=== PATIENT | male | born 1990 | race Two or more races ===

== ENCOUNTER 2025-02-09 02:43 | Emergency (ER) | payer MEDICAID, SELFPAY ==
[2025-02-09 02:46] VITALS: BMI 32.5
[2025-02-09 02:53] VITALS: BP 146/90; PULSE 94; RESP 20; O2SAT 100
--- NOTE | 2025-02-09 03:13 | EDNOTE_ITS ---
ED Recheck Abnl Lab Rx-RME/HPI General Chief Complaint: General Adult/Misc Complain Stated Complaint: NOT FEELING GOOD Time Seen by Provider: 02/09/25 03:08 Arrival date/time: 02/09/25 02:43 34M with no significant PMH presents to ED with muscle cramps and possible anxiety/panic attack. Patient recently started taking creatine and has not been drinking enough water. Limitations: no limitations Related Data Allergies Allergy/AdvReac Type Severity Reaction Status Date / Time No Known Allergies Allergy Verified 02/09/25 02:44 Review of Systems Review of Systems Systems Reviewed: All systems reviewed, normal except as documented Constitutional Constitutional: Reports system reviewed and no additional complaints, except as documented, Denies fever(s) and Denies headache(s) ENT Ears, Nose, Mouth, and Throat: Denies disequilibrium and Denies headache(s) Cardiovascular Cardiovascular: Reports system reviewed and no additional complaints, except as documented, Denies chest pain and Denies dyspnea Respiratory Respiratory: Reports system reviewed and no additional complaints, except as documented, Denies cough and Denies dyspnea Gastrointestinal Gastrointestinal: Reports system reviewed and no additional complaints, except as documented, Denies abdominal pain, Denies nausea and Denies vomiting Musculoskeletal Musculoskeletal: Reports as per HPI and Reports muscle cramps Neurologic Neurologic: Reports system reviewed and no additional complaints, except as documented, Denies confusion, Denies disequilibrium and Denies headache(s) Psychiatric Psychiatric: Reports as per HPI, Denies confusion and Reports panic attacks Past Medical History Social History SMOKING STATUS: Former smoker ED Exam General Limitations: Present no limitations General appearance: Present alert, in no apparent distress and anxious Head Head exam: Present atraumatic Eye Eye exam: Present normal appearance, PERRL and EOMI ENT ENT exam: Present normal exam, normal oropharynx and mucous membranes moist Neck Neck exam: Present normal inspection, full ROM and trachea midline Chest Chest inspection: Present normal inspection and symmetric chest wall rise Respiratory Respiratory exam: Present normal lung sounds bilaterally Cardiovascular Cardiovascular exam: Present regular rate, normal rhythm and normal heart sounds Abdominal Exam Abdominal exam: Present soft and normal bowel sounds Extremities Exam Extremities exam: Present normal inspection and full ROM Back Exam Back exam: Present normal inspection and full ROM Neurological Exam Neurological exam: Present alert, oriented X3 and CN II-XII intact Psychiatric Psychiatric exam: Present normal affect and normal mood Skin Skin exam: Present warm, dry, intact and normal color Course Quality Measures none Orders Category Date Time Status Alcohol, Blood Medical Stat Lab 02/09/25 03:18 Completed CBC Stat Lab 02/09/25 03:18 Completed CMP [Comprehensive Metabolic Panel] Stat Lab 02/09/25 03:18 Completed Drug Screen,Urine Stat Lab 02/09/25 03:27 Completed Urinalysis, C/S if Indicated Stat Lab 02/09/25 03:27 Completed Diazepam [Valium] Med 02/09/25 03:09 Discontinued 5 mg PO X1 ONE Vital Signs Vital signs: Vital Signs Pulse Rate 94 02/09/25 02:53 Respiratory Rate 20 02/09/25 02:53 Blood Pressure 146/90 H 02/09/25 02:53 Pulse Oximetry (%) 100 02/09/25 02:53 Oxygen Delivery Method Room Air 02/09/25 02:53 O2 at 100% on RA and WNLs Recheck / Abnormal Lab / Rx MDM Narrative MDM Narrative:: 34M with no significant PMH presents to ED with muscle cramps and possible anxiety/panic attack. Patient recently started taking creatine and has not been drinking enough water. Physical exam reveals anxious individual. Normal WOB. Speech normal. Patient is afebrile and alert. No leukocytosis. CMP unremarkable except for mildly elevated Cr of 1.5. Unclear of chronic vs acute. UA clean no proteins. [employer] given. Valium improved anxiety. Patient data External records reviewed:: None Clinical information provided by:: patient Social determinants that could affect healthcare access:: none Patient has the following chronic illnesses:: none How is presenting disease/condition affected by chronic disease/condition?: no chronic disease Evaluation data The following diagnostics were reviewed and interpreted by me:: lab results Lab and/or radiology exams considered but not ordered:: ordered Interpretation Summary: above Medications / Prescriptions Medications or Prescriptions considered but not ordered:: ordered Medication administrations:: Medication Administration History Discontinued Medications Diazepam (Diazepam 5 Mg Tablet) 5 mg PO X1 ONE Stop: 02/09/25 03:10 Last Admin: 02/09/25 03:15 Dose: 5 mg Documented By: CVL above Consultations Consultation(s) initiated? (list below): No Diagnosis Recheck Differential Diagnosis: encounter for medication refill, encounter for wound recheck, encounter for recheck of burn, encounter for removal of sutures, warfarin-induced coagulopathy and other (muscle cramps, panic attack, elevated creatinine) Most likely diagnosis given after review of the tests above:: panic attack and elevated creatinine Admission Indicated Admission indicated?: not indicated Admission Request Was there a request for admission?: No Disposition Plan Disposition Plan: Discharge Discharge Attestation Discharge Attestation: The patient and all family members were given an opportunity to ask questions and understood the discharge instructions. Discharge instructions specifically effects, indications for sooner follow up or return to the emergency department, and the expected course of current diagnosis. Patient condition: Stable Discharge Plan Plan Patient Disposition: HOME (Self Care) Discharge Disposition comment: Stable Prescriptions/Referrals Referrals: No Primary/Family,Physician [Primary Care Provider] - In 1 week Problem List Clinical Impression: Creatinine elevation, Panic attack Patient/Caregiver Discharge Instructions Education Materials: Creatinine (Blood), Your Body's Response to Anxiety Additional Instructions: Please follow-up with PCP within 24-48 hours and return immediately if symptoms worsen. Drink more water and take less protein. See PCP to monitor Cr of 1.5. Print Language: Icelandic Stand Alone Forms: Patient Portal Info Letter CASIE/SHERRY Supervising Physician CASIE/SHERRY Supervising Physician: Dr. Reddy
[2025-02-09] MEDS: DIAZEPAM 5 MG TABLET PO (03:15)
[2025-02-09 03:34] LABS: Collection Type, Urine Clean Catch; Squamous Epithelial Cell,Urine 0 /hpf (0-5)
[2025-02-09 03:36] LABS: Basophils # (Auto) 0.1 Thou/mm3 (0.0-0.2); Basophils % (Auto) 1 % (0-2.5); Eosinophils # (Auto) 0.3 Thou/mm3 (0.0-0.5); Eosinophils % (Auto) 3 % (0-10); Hematocrit 41.8 % (41.0-53.0); Hemoglobin 14.5 g/dL (13.5-16.0); Immature Granulocytes Auto 0.06 Thou/mm3 (0.00-0.00); Lymphocytes # (Auto) 3.3 Thou/mm3 (1.0-4.8); Lymphocytes % (Auto) 32 % (10-50); Mean Corpuscular HGB Conc 34.7 g/dl (31.0-37.0); Mean Corpuscular Hemoglobin 29.7 pg (25.0-35.0); Mean Corpuscular Volume 86 fL (80-100); Monocytes # (Auto) 0.9 Thou/mm3 (0.0-0.8); Monocytes % (Auto) 9 % (0-12); Neutrophils # (Auto) 5.6 Thou/mm3 (1.8-7.7); Neutrophils % (Auto) 55 % (37-80); Nucleated Red Blood Cell # 0.00 Thou/mm3 (0.00-0.00); Nucleated Red Blood Cell % 0 /100 WBC (0); Platelet Count 150 Thou/mm3 (140-440); RDW Standard Deviation 40.3 fL (35.1-43.9); Red Blood Count 4.88 Miln/mm3 (4.50-5.90); White Blood Count 10.2 Thou/mm3 (3.8-10.6)
[2025-02-09 03:44] LABS: Bilirubin,Urine Negative (Negative); Blood,Urine Negative (Negative); Clarity,Urine Clear (Clear/Hazy); Color,Urine Lt-Yellow (Lt Yel-Yel); Culture Indicated,Urine Not Indicated; Glucose, Urine Negative (Negative); Ketones,Urine Negative (Negative); Leukocyte Esterase,Urine Negative (Negative); Nitrite,Urine Negative (Negative); PH,Urine 6.0 (5.0-7.0); Protein,Urine Negative (Neg - Trace); RBC,Urine 1 /hpf (0-3); Specific Gravity,Urine 1.014 (1.001-1.035); Urobilinogen,Urine Negative mg/dL (0.0-1.0); WBC,Urine 1 /hpf (0-5)
[2025-02-09 03:49] LABS: Amphetamine/Methamp Scrn,U Negative (Negative); Barbiturate Screen,Urine Negative (Negative); Benzodiazepines Screen,Urine Negative (Negative); Benzoylecgonine Screen, Ur Negative (Negative); Fentanyl Screen,Urine Negative (Negative); Opiate Screen,Urine Negative (Negative); THC Screen,Urine Negative (Negative)
[2025-02-09 04:02] LABS: Alanine Aminotransferase 27 U/L (10-49); Albumin, Serum 4.3 gm/dL (3.5-5.0); Albumin/Globulin Ratio 1.8 (1.2-2.2); Alcohol, Blood Medical < 3.0 mg/dL (0-10.0); Alkaline Phosphatase 90 U/L (46-116); Anion Gap 7 (7-16); Aspartate Amino Transferase 30 U/L (0-34); BUN/Creatinine Ratio 7 Ratio (12-20); Bilirubin,Total 0.3 mg/dL (0.3-1.2); Blood Urea Nitrogen 10 mg/dL (9-23); Calcium 9.5 mg/dL (8.3-10.6); Calcium (Corrected) 9.5 mg/dL (8.5-10.1); Carbon Dioxide 26.2 mMol/L (20.0-31.0); Chloride 106 mMol/L (98-107); Creatinine (Component) 1.5 mg/dL (0.6-1.3); Estimated Creatinine Clearance 81.6 mL/min (>60); Globulin 2.4 gm/dL (2.3-3.5); Glucose 87 mg/dL (74-106); Osmolality,Calculated 275 (275-295); Potassium 3.4 mMol/L (3.4-5.1); Sodium 139 mMol/L (136-145); Total Protein 6.7 gm/dL (5.7-8.2); eGFR > 60 See Note
[2025-02-09 04:37] VITALS: RESP 16
== END 2025-02-09 04:38 | disposition home or self-care (01) ==
PROVIDERS: Physician Assistant; Emergency Provider Emergency Medicine
DX: F41.0 Panic disorder [episodic paroxysmal anxiety] (principal); R79.89 Other specified abnormal findings of blood chemistry
CPT/HCPCS: 36415; 80053; 80307; 80320; 81001; 83690; 85025; 99283; A9270; G0480